=== PATIENT | male | born 1930 ===

== ENCOUNTER 2020-06-20 10:35 | Day surgery (SDC) | payer MEDICARE ==
[~2020-06-20] VITALS: Ht 172.7 cm; Wt 70.1 kg
[2020-06-20 11:27] VITALS: BP 115/54; PULSE 59; TEMP 97.6
[2020-06-20] MEDS ORDERED: ASPIRIN E.C. 8181 MG PO (11:32)
[2020-06-20] MEDS ORDERED: PLAVIX 75MG TAB75 MG PO (11:33)
[2020-06-20] MEDS ORDERED: COZAAR 50MG50 MG/TAB PO (11:34)
[2020-06-20] MEDS ORDERED: MIRALAX119G PO (11:35)
[2020-06-20] MEDS ORDERED: PRAVACHOL 20MG20 MG PO (11:36)
[2020-06-20] MEDS ORDERED: SINEMET CR 50 M1 TER PO (11:39)
[2020-06-20] MEDS ORDERED: ALDACTONE 25MG25 M1 PO (11:41)
[2020-06-20] MEDS ORDERED: B-121000 MCG PO (11:42)
[2020-06-20] MEDS ORDERED: VITAMIN D31000 I1 PO (11:43)
[2020-06-20] MEDS ORDERED: TYLENOL 325MG325 MG PO ×2 (11:44→11:49)
[2020-06-20] MEDS ORDERED: TYLENOL SU650 MG/SUP RC (11:45)
[2020-06-20] MEDS ORDERED: COREG 6.256.25 MG/TA PO (11:46)
[2020-06-20] MEDS ORDERED: GENTLE LAXATIVE10 MG RC (11:47)
[2020-06-20] MEDS ORDERED: ASPERCREME1 EACH TP (11:47)
[2020-06-20] MEDS ORDERED: ALMACONE 360 M360 ML PO (11:48)
[2020-06-20] MEDS ORDERED: IMODIUM 2MG CAPS2 MG PO (11:48)
[2020-06-20] MEDS ORDERED: GOOD NEIGH1200 MG/15 PO (11:48)
[2020-06-20] MEDS ORDERED: NITROSTAT0.4 MG/TAB SL (11:49)
[2020-06-20 13:10] VITALS: BP 124/65; PULSE 70; TEMP 97.1
--- NOTE | 2020-06-20 13:10 | NUR ---
Report recieved from Tulio BEYER. Pt resting in bed. Awake and alert. Denies pain or nausea. Muffin and water given per pt request. Will continue to monitor. Call light within reach.
--- NOTE | 2020-06-20 13:42 | NUR ---
Report given to Margarita Chavez LPN at [facility]. Questions invited and answered. Discharge instructions reviewed with her and pt. Pt voices understanding. Pt assisted with dressing and transfer into wheel chair.
--- NOTE | 2020-06-20 13:54 | NUR ---
Pt escorted to [employer] transportation vehicle via wheel chair. Pt accomapanied back to alf with transportation staff.
== END 2020-06-20 13:56 | disposition home or self-care (01) ==
LOC: SDCO 10:35
DX: R33.9 Retention of urine, unspecified (principal); R31.0 Gross hematuria; I48.91 Unspecified atrial fibrillation; I25.10 Atherosclerotic heart disease of native coronary artery without angina pectoris; E78.5 Hyperlipidemia, unspecified; I10 Essential (primary) hypertension; M19.90 Unspecified osteoarthritis, unspecified site; G20 Parkinson's disease; Z90.49 Acquired absence of other specified parts of digestive tract; N40.0 Benign prostatic hyperplasia without lower urinary tract symptoms; Z79.82 Long term (current) use of aspirin; Z79.02 Long term (current) use of antithrombotics/antiplatelets

== ENCOUNTER → 2020-06-30 | Outpatient (CLI) | payer MEDICARE ==
[~2020-06-30] MED LIST: ALDACTONE 25MG25 M1 PO; ALMACONE 360 M360 ML PO; ASPERCREME1 EACH TP; ASPIRIN E.C. 8181 MG PO; B-121000 MCG PO; COREG 6.256.25 MG/TA PO; COZAAR 50MG50 MG/TAB PO; GENTLE LAXATIVE10 MG RC; GOOD NEIGH1200 MG/15 PO; IMODIUM 2MG CAPS2 MG PO; MIRALAX119G PO; NITROSTAT0.4 MG/TAB SL; PLAVIX 75MG TAB75 MG PO; PRAVACHOL 20MG20 MG PO; SINEMET CR 50 M1 TER PO; TYLENOL 325MG325 MG PO; TYLENOL SU650 MG/SUP RC; VITAMIN D31000 I1 PO
[2020-06-30 16:06] LABS: BASO # 0.1 (0.0-0.2); EOS # 0.6 (0.0-0.7); EOS % 6.5 % (0-4.0); GRAN # 6.1 (1.4-6.5); GRAN % 65.5 % (42.2-75.2); HEMATOCRIT 39.1 % (42.0-52.0); HEMOGLOBIN 12.8 g/dl (13.5-18.0); LYMPH # 1.5 (1.2-3.4); MEAN CELL VOLUME 94 fl (80.0-100.0); MEAN CORPUSCULAR HEMOGLOBIN 31 pg (27.0-31.0); MEAN CORPUSCULAR HGB CONC 33 g/dl (33.0-37.0); MEAN PLATELET VOLUME 10.6 fl (7.4-10.4); MONO % 10.4 % (1.7-9.3); PLATELET COUNT 233 K/mm3 (130-400); RED BLOOD COUNT 4.16 M/mm3 (4.20-5.60); REDCELL DISTRIBUTION WIDTH-CV 14.9 % (11.5-14.5)
== END ==
LOC: ZCOL.LAB 15:54
PROVIDERS: Internal Medicine
DX: R31.9 Hematuria, unspecified (principal)